=== PATIENT | female | born 1985 | race Caucasian/White ===

== ENCOUNTER 2016-11-07 14:37 | Emergency (ER) | payer BC, OTHER ==
[~2016-11-07] VITALS: Ht 162.6 cm; Wt 68.2 kg
[2016-11-07 14:49] VITALS: Ht 162.6 cm; Wt 68.2 kg
[2016-11-07] MEDS ORDERED: SOD CHLORIDE 0.9% 1,000 ML IV STA (15:09)
[2016-11-07] MEDS ORDERED: PHENYTOIN 1,000 MG in SOD CHLORIDE 0.9% 80 ML IVPB STA (15:09)
--- NOTE | 2016-11-07 15:47 | RADRPT ---
PROCEDURE: XR Chest. CLINICAL INDICATION: chest pain, seizure TECHNIQUE: Single frontal view of the chest was obtained COMPARISON: None FINDINGS: The heart and mediastinum are within normal limits. There is a tracheostomy tube overlying the trachea. There is a second tracheostomy catheter which d oes not overlie the trachea. There is a right-sided GRAB OPERATOR shunt catheter noted. There is a partially visualized IVC filter in place . The lungs are clear. There is no pleural effusion or pneumothorax. RPTAT: AA IMPRESSION: No focal infiltrate. Two tracheostomy catheters are seen in the upper chest. One of the catheters is overlying the trach ea. The other appears to be outside the airway. Clinical correlation is needed. .Joshua Rhodes MD, MD Date Time Electronically viewed and signed by .Joshua Rhodes MD, on 11/07/2016 15:47 .S/
[2016-11-07] MEDS ORDERED: ACET160O41 GTB (15:49)
[2016-11-07] MEDS ORDERED: LORAZEPAM 2 MG INJ ONE (15:54)
[2016-11-07] MEDS ORDERED: BACL10TA PO (16:02)
[2016-11-07] MEDS ORDERED: BACLOFEN 5 MG/ML GTB (16:04)
[2016-11-07] MEDS ORDERED: BISA10SU55 RC (16:07)
[2016-11-07] MEDS ORDERED: BISA1POW MC (16:07)
[2016-11-07] MEDS ORDERED: [UNRECOGNIZED DRUG - CODE] IV (16:10)
[2016-11-07] MEDS ORDERED: [UNRECOGNIZED DRUG - OTHER] IV* (16:17)
[2016-11-07] MEDS ORDERED: [UNRECOGNIZED DRUG - OTHER] (16:17)
[2016-11-07] MEDS ORDERED: HYDRALAZINE IV* (16:23)
[2016-11-07] MEDS ORDERED: MAGN400O4 GTB (16:24)
[2016-11-07 16:25] LABS: ADD SCAN DIFF NO
[2016-11-07] MEDS ORDERED: MUPI22OI2 TOP (16:25)
[2016-11-07] MEDS ORDERED: ONDA4AMP IV (16:28)
[2016-11-07 16:29] LABS: BASOPHILS % 0.4 % (0.0-2.0); EOSINOPHILS # 0.2 10^3/ul (0.0-0.5); EOSINOPHILS % 1.7 % (0.0-7.0); HEMATOCRIT 37.7 % (37.0-47.0); HEMOGLOBIN 11.7 g/dl (12.0-16.0); LYMPHOCYTES # 1.6 10^3/ul (0.8-2.9); LYMPHOCYTES % 15.6 % (15.0-51.0); MEAN CORPUSCULAR HEMOGLOBIN 29.1 pg (29.0-33.0); MEAN CORPUSCULAR VOLUME 93.8 fl (82.0-101.0); MEAN PLATELET VOLUME 11.2 fl (7.4-10.4); MONOCYTE # 0.7 10^3/ul (0.3-0.9); MONOCYTES % 7.3 % (0.0-11.0); NEUTROPHIL # 7.5 10^3/ul (1.6-7.5); NEUTROPHILS % 74.3 % (39.0-77.0); PLATELET COUNT 393 10^3/UL (140-415); RED BLOOD COUNT 4.02 10^6/ul (4.20-5.40); RED CELL DISTRIBUTION WIDTH 13.6 % (11.5-14.5); WHITE BLOOD COUNT 10.1 10^3/ul (4.8-10.8)
[2016-11-07] MEDS ORDERED: LORAZEPAM 2 MG INJ IV ONE (16:30)
[2016-11-07] MEDS ORDERED: POLY17PO3 GTB (16:30)
[2016-11-07] MEDS ORDERED: PSYL1040 GTB (16:32)
[2016-11-07] MEDS ORDERED: SENN8.8S5 GTB (16:33)
[2016-11-07] MEDS ORDERED: SIME40DR G-TUBE (16:36)
[2016-11-07 16:39] LABS: INR 0.87; PROTIME 11.8 Sec (12.2-14.2); PT RATIO 0.9
[2016-11-07 16:40] LABS: ALBUMIN 4.5 g/dl (3.3-4.9); PARTIAL THROMBOPLASTIN TIME 28.8 Sec (25.0-35.0)
[2016-11-07] MEDS ORDERED: SODIUM CHLORIDE (16:40)
[2016-11-07 16:41] LABS: POTASSIUM 4.4 mmol/L (3.5-5.1)
[2016-11-07] MEDS ORDERED: SODIUM (16:41)
[2016-11-07 16:43] LABS: ALBUMIN/GLOBULIN RATIO 1.28; BILIRUBIN,INDIRECT 0.6 mg/dl (0-1.1); BILIRUBIN,TOTAL 0.6 mg/dl (0.2-1.3); CREATININE 0.51 mg/dl (0.44-1.00)
[2016-11-07 16:44] LABS: CALCIUM 9.9 mg/dl (8.4-10.2)
[2016-11-07] MEDS ORDERED: [UNRECOGNIZED DRUG - OTHER] IV (16:53)
[2016-11-07] MEDS ORDERED: NA P133E5 RC (16:53)
[2016-11-07] MEDS ORDERED: TRAZ50TA18 GTB (16:55)
[2016-11-07] MEDS ORDERED: ACID1CAP GTB (16:57)
[2016-11-07] MEDS ORDERED: ALBU2.5V3 NEB (17:03)
[2016-11-07] MEDS ORDERED: AMAN100C65 GTB (17:05)
[2016-11-07] MEDS ORDERED: BROM5CAP11 G-TUBE (17:06)
[2016-11-07] MEDS ORDERED: CHLO473M4 MM (17:09)
[2016-11-07] MEDS ORDERED: DOCU-144 G-TUBE (17:11)
[2016-11-07] MEDS ORDERED: HEPA500021 IJ (17:11)
[2016-11-07] MEDS ORDERED: HYDR-906 G-TUBE (17:13)
[2016-11-07] MEDS ORDERED: KEP100S G-TUBE (17:15)
[2016-11-07] MEDS ORDERED: MULT9LIQ4 G-TUBE (17:17)
[2016-11-07] MEDS ORDERED: NYST1POW22 TOPICAL (17:18)
[2016-11-07] MEDS ORDERED: OMEP20CA16 G-TUBE (17:19)
[2016-11-07] MEDS ORDERED: DEXT1DRO7 OPHTHALMIC (17:30)
[2016-11-07] MEDS ORDERED: DEXT1DRO6 OP (18:07)
[2016-11-07] MEDS ORDERED: [UNRECOGNIZED DRUG - CODE] GTB (18:11)
[2016-11-07] MEDS ORDERED: MULT-876 G-TUBE (18:13)
[2016-11-07] MEDS ORDERED: ASCO500S2 GTB (18:14)
[2016-11-07 18:32] VITALS: TEMP 98.7
--- NOTE | 2016-11-07 18:51 | RADRPT ---
PROCEDURE: CT Head without. CLINICAL INDICATION: Seizure. TECHNIQUE: The study was performed utilizing a multi-slice, multidetector CT scanner. Direct spira l 1 mm axial sections were obtained through the head without the use of intravenous contrast materia l. 1 or more of the following dose reduction techniques were utilized: Automated exposure control, adjustment of the mA and/or kV according to patient's size, iterative reconstruction technique. Co ronald and sagittal reformations were obtained. The images were reviewed on a PACS workstation. RADIATION DOSE: CTDIvol: 42.1 mGyDLP: 962.6 mGy-cm COMPARISON: No prior studies are available for comparison. FINDINGS: There are postoperative changes from right frontal - temporal - parietal decompressive craniectomy w ith cranioplasty in place. There is a right parietal approach ventriculostomy within the body of th e right lateral ventricle. There is severe prominence of both lateral ventricles, with the frontal horn of the right lateral ventricle measuring 3.3 cm. There is severe enlargement of the temporal h orn of the right lateral ventricle. There is a mild amount of periventricular and subcortical white matter hypodensity, concerning for transependymal CSF migration. There is encephalomalacia involvi ng the anterior right temporal lobe in the middle cranial fossa. There are postoperative changes fr om left frontal - parietal - temporal craniectomy, with cranioplasty in place. There is severe abno rmal morphology of the left cerebral hemisphere. There is encephalomalacia involving the left anter ior frontal lobe as well as the left temporal lobe, with suggestion of porencephalic cyst formation. There is air within the anterior aspect of the left porencephalic cyst, as well as withi n the temporal horn of the left lateral ventricle (axial series image 8 seen). There is encephaloma lacia involving the anterior - inferior right frontal lobe as well as the paramedian - inferior left frontal lobe. There is extensive encephalomalacia involving the anterior left temporal lobe in the middle cranial fossa. There is no significant subdural fluid collection in the bilateral craniopla sties. The brainstem and cerebellum appear intact. There is no intracranial hemorrhage, mass lesion or mid line shift. The mastoid air cells middle ear cavities normally aerated. The paranasal sinuses are normally aerated. IMPRESSION: 1. Right frontal approach ventriculostomy with tip in the body of the right lateral ventricle. The re is severe enlargement of both lateral ventricles, concerning for moderate hydrocephalus with poss ible transependymal CSF migration. Concern is raised for possible shunt malfunction. 2. Extensive encephalomalacia involving the bilateral anterior - inferior frontal lobes and bilater al temporal lobes, which is likely related to sequelae of prior trauma. 3. Severe volume loss involving the left anterolateral frontal lobe, with porencephalic cyst format ion. There is a small amount of air within the left frontal porencephalic cyst as well as within th e temporal horn of the left lateral ventricle. This is likely related to patient's recent shunt nya cement. 4. No acute intracranial hemorrhage, mass lesion or midline shift. 5. Postoperative changes from bilateral frontal - temporal - parietal decompressive craniectomy wit h cranioplasty in place. The above findings were discussed with Patient's physician WILIAN Crespo by telephone on 2016 6:50:44 PM. RPTAT: HGAS .Peter Chun MD, MD Date Time Electronically viewed and signed by .Peter Chun MD, on 11/07/2016 18:51 .S/
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
[2016-11-07] MEDS ORDERED: hydrALAzine 20 MG INJ IV ONE (20:30)
[2016-11-07] MEDS ORDERED: MANNITOL 20% 500 ML IV ONE (20:30)
[2016-11-07] MEDS ORDERED: METHYLPREDNISOLONE 125 MG INJ IV STA (21:23)
[2016-11-07] MEDS ORDERED: DIPHENHYDRAMINE 50 MG INJ IV STA (21:23)
[2016-11-07] MEDS ORDERED: FAMOTIDINE 20 MG INJ IV STA (21:23)
[2016-11-07 22:06] VITALS: BP 136/113; PULSE 130; RESP 16
== END 2016-11-07 22:22 | disposition short-term general hospital (02) ==
LOC: E/R 14:37
DX: T85.09XA Other mechanical complication of ventricular intracranial (communicating) shunt, initial encounter (principal); Y75.8 Miscellaneous neurological devices associated with adverse incidents, not elsewhere classified; Z79.01 Long term (current) use of anticoagulants
CPT/HCPCS: 70450; 71010; 80053; 85025; 85610; 85730; 94002; J0360; J1165; J1200; J2060; J2930; J7030; 96365; 96375